=== PATIENT | female | born 1965 | race African-American/Black ===

== ENCOUNTER 2016-06-07 19:53 | Emergency (ER) | payer MEDICARE, OTHER ==
[~2016-06-07] VITALS: Ht 160 cm; Wt 73.5 kg
--- NOTE | 2016-06-07 20:00 | NUR ---
To bed 7 a 51 yo female bibself and reported, "had gayza treatment today s/p kidney transplant 7 years ago and I had shortness of breath." Upon arrival to er, patient is aaox4, ambulatory. No s/s of acute distress. Breathing even and unlabored. O2 saturation on room air is 99%. However patient reported that she still have "a little bit short of breath." Patient is afebrile. VSS. Initiated comfort meaures. Awaiting for er md kelly.
--- NOTE | 2016-06-07 20:10 | NUR ---
started a saline lock on the lac g18, blood drawn and sent to lab.
[2016-06-07 20:14] LABS: BASOPHILS % (AUTO) 0.2 % (0.0-2.0); EOSINOPHILS % (AUTO) 0.2 % (0.0-6.0); HEMATOCRIT 38 % (33-45); HEMOGLOBIN 12.4 g/dL (11.5-14.8); LYMPHOCYTES # (AUTO) 0.5 /CMM (0.8-4.8); MEAN CORPUSCULAR HEMOGLOBIN 31 PG (26.0-33.0); MEAN CORPUSCULAR HGB CONC 33 g/dl (31.0-36.0); MEAN CORPUSCULAR VOLUME 96 fL (82-100); MONOCYTES # (AUTO) 0.1 /CMM (0.1-1.30); MONOCYTES % (AUTO) 1.9 % (2.0-12.0); NEUTROPHILS % (AUTO) 85.7 % (43.0-81.0); PLATELET COUNT (AUTO) 125 /CMM (150-450); RDW COEFFICIENT OF VARIATION 13.8 (11.5-15.0); RED BLOOD CELL COUNT(AUTO) 3.96 MIL/uL (4.0-5.2); WHITE BLOOD COUNT (AUTO) 4.6 K/uL (4.3-11.0)
[2016-06-07 20:24] LABS: CALCIUM, SERUM 8.8 mg/dL (8.5-10.1); CREATININE 1.2 mg/dL (0.6-1.3)
[2016-06-07 20:50] LABS: APPEARANCE,URINE Slightly Cloudy (CLEAR); BILIRUBIN,URINE Negative (NEGATIVE); BLOOD, URINE Negative Ery/uL (NEGATIVE); COLOR,URINE Yellow (YELLOW); KETONES,URINE Trace (NEGATIVE); LEUKOCYTE ESTERASE ,URINE Negative (NEGATIVE); NITRITE, URINE Negative (NEGATIVE); PH,URINE 8.5 (5.0-8.0); PROTEIN,URINE Negative (NEGATIVE); UROBILINOGEN,URINE 0.2 EU/dL (0.2)
[2016-06-07 20:54] LABS: UGLUCOSE 100 MG/DL mg/dL (NEGATIVE)
[2016-06-07 21:10] LABS: ADD URINE CULTURE NO; BACTERIA,URINE None seen /HPF (None Seen); RBC,URINE 0-2 /HPF (0-2); SQUAMOUS EPITHELIAL CELL,UR Few /HPF (None Seen); WBC,URINE 0-2 /HPF (0-3)
--- NOTE | 2016-06-07 22:23 | NUR ---
IV removed. Catheter intact and site benign. Pressure and 4x4 applied to site. No bleeding noted.Patient discharged to home in stable condition. Written and verbal after care instructions given. Patient verbalizes understanding of instruction. Patient is ambulatory with steady gait, accompanied by mother.
[2016-06-07 22:25] VITALS: BP 130/90
== END 2016-06-07 22:25 | disposition home or self-care (01) ==
LOC: ER 19:55
DX: R06.02 Shortness of breath (principal); E11.9 Type 2 diabetes mellitus without complications; I10 Essential (primary) hypertension; E03.9 Hypothyroidism, unspecified; Z88.2 Allergy status to sulfonamides; Z88.6 Allergy status to analgesic agent; Z88.1 Allergy status to other antibiotic agents
CPT/HCPCS: 36415; 71010-TC; 80048-TC; 81000-TC; 85025-TC; 85378-TC; 87086-TC; A4606; Z7610